=== PATIENT | male | born 1990 | race Two or more races ===

== ENCOUNTER 2024-08-19 07:44 | Emergency (ER) | payer MEDICAID, SELFPAY ==
[2024-08-19 08:31] VITALS: BP 130/80; PULSE 70; RESP 18; TEMP 37; O2SAT 97; BMI 44.7
--- NOTE | 2024-08-19 09:44 | EDNOTE_ITS ---
<Statement entered by Reshma Hampton MD - 08/20/24 06:47> As co-signing physician, I was present and available for consult prn. I concur with the plan and care as documented by the midlevel provider. ED Back Injury Pain RME/HPI General Chief Complaint: Back Pain/Injury Stated Complaint: MUSCLE SPASM IN BACK SINCE YESTERDAY Time Seen by Provider: 08/19/24 08:41 Arrival date/time: 08/19/24 07:44 RME / HPI RME / HPI Narrative: 34-year-old patient presents to the emergency department with complaint of upper back pain. Patient states that while at home sitting he explained that he is having back orthopedic of something and noticed immediate sharp pain. He denies numbness and tingling to distal right extremity. He denies bowel or bladder dysfunction. He denies fever. Pain is worse with palpation of back with flexion and extension of his back. He endorses a history of degenerative joint disease Related Data Previous Rx's ?Medication ?Instructions ?Recorded mupirocin 2 % topical ointment 1 applic topical BID #22 grams 03/12/24 cyclobenzaprine 10 mg tablet 10 mg PO HS 10 days #10 tabs 08/19/24 ibuprofen 800 mg tablet 800 mg PO Q8H #30 tabs 08/19/24 Allergies Allergy/AdvReac Type Severity Reaction Status Date / Time No Known Allergies Allergy Verified 08/19/24 07:46 Review of Systems Review of Systems Systems Reviewed: All systems reviewed, normal except as documented Constitutional Constitutional: Reports system reviewed and no additional complaints, except as documented ENT Ears, Nose, Mouth, and Throat: Reports system reviewed and no additional complaints, except as documented Cardiovascular Cardiovascular: Reports system reviewed and no additional complaints, except as documented Respiratory Respiratory: Reports system reviewed and no additional complaints, except as documented Gastrointestinal Gastrointestinal: Reports system reviewed and no additional complaints, except as documented Musculoskeletal Musculoskeletal: Reports system reviewed and no additional complaints, except as documented, Reports back pain, Denies numbness, Denies radiating pain into limb and Reports stiffness Neurologic Neurologic: Denies numbness Psychiatric Psychiatric: Reports system reviewed and no additional complaints, except as documented ED Exam General General appearance: Present alert and in no apparent distress Head Head exam: Present atraumatic and normocephalic ENT ENT exam: Present normal exam and normal oropharynx Neck Neck exam: Present normal inspection and full ROM Chest Chest inspection: Present normal inspection and symmetric chest wall rise Respiratory Respiratory exam: Present normal lung sounds bilaterally Cardiovascular Cardiovascular exam: Present regular rate and normal rhythm Extremities Exam Extremities exam: Present normal inspection and full ROM Back Exam Back exam: Present normal inspection, tenderness, paraspinal tenderness and vertebral tenderness; Absent sciatic notch tenderness (R), straight leg raise (R) or straight leg raise (L) Psychiatric Psychiatric exam: Present normal affect and normal mood Course Quality Measures none Orders Category Date Time Status HYDROcodone*/APAP 5/325 [[place] 5/325] Med 08/19/24 09:44 Once 1 tab PO X1 ONE Ketorolac Inj [Toradol Inj] Med 08/19/24 09:44 Once 60 mg IM X1 ONE Vital Signs Vital signs: Vital Signs Temperature 98.6 F 08/19/24 08:31 Pulse Rate 70 08/19/24 08:31 Respiratory Rate 18 08/19/24 08:31 Blood Pressure 130/80 08/19/24 08:31 Pulse Oximetry (%) 97 08/19/24 08:31 Oxygen Delivery Method Room Air 08/19/24 08:31 Back Pain / Injury MDM Narrative MDM Narrative:: 34-year-old patient presents emergency department with complaint of back pain signs and symptoms appears consistent with lumbar spine patient is stable to be DC'd home with NSAIDs for pain control and a muscle relaxant. Patient data External records reviewed:: None Clinical information provided by:: patient Social determinants that could affect healthcare access:: none Patient has the following chronic illnesses:: DJD How is presenting disease/condition affected by chronic disease/condition?: no chronic disease Evaluation data The following diagnostics were reviewed and interpreted by me:: other (specify) (na) Lab and/or radiology exams considered but not ordered:: na Interpretation Summary: na Medications / Prescriptions Medications or Prescriptions considered but not ordered:: Medications or prescriptions considered and ordered Medication administrations:: per above Consultations Consultation(s) initiated? (list below): No Diagnosis Differential diagnosis back pain/injury: lumbar radiculopathy, sciatica, strain of lumbar region and thoracic back pain Most likely diagnosis given after review of the tests above:: thoraco-lumbar strain Admission Indicated Admission indicated?: not indicated Admission Request Was there a request for admission?: No Disposition Plan Disposition Plan: Discharge Discharge Attestation Discharge Attestation: The patient and all family members were given an opportunity to ask questions and understood the discharge instructions. Discharge instructions specifically effects, indications for sooner follow up or return to the emergency department, and the expected course of current diagnosis. Patient condition: Stable Discharge Plan Plan Patient Disposition: HOME (Self Care) Patient condition on transfer: Stable Prescriptions/Referrals Prescriptions/Med Rec: New ibuprofen 800 mg tablet 800 mg PO Q8H Qty: 30 0RF cyclobenzaprine 10 mg tablet 10 mg PO HS 10 Days Qty: 10 0RF No Action mupirocin 2 % ointment 1 applic topical BID Qty: 22 0RF Problem List Clinical Impression: Acute thoracic myofascial strain, Thoracic back pain Patient/Caregiver Discharge Instructions Education Materials: Treating?Strains and Sprains, Self-Care for Strains and Sprains Print Language: Urdu Stand Alone Forms: [facility] Award Info., Patient Portal Info Letter
[2024-08-19] MEDS: HYDROcodone/APAP 5/325 TABLET 1 TAB PO (10:38)
[2024-08-19] MEDS: KETOROLAC INJ 60 MG/2 ML VIAL IM (10:40)
== END 2024-08-19 11:22 | disposition home or self-care (01) ==
LOC: SERX 10:30
PROVIDERS: Emergency Provider Emergency Medicine
DX: S29.012A Strain of muscle and tendon of back wall of thorax, initial encounter (principal); X58.XXXA Exposure to other specified factors, initial encounter
CPT/HCPCS: 96372; 99283; J1885; A9270

== ENCOUNTER → 2024-10-13 | Outpatient (BNVA) | payer MEDICAID, SELFPAY | END | disposition home or self-care (01) | PROVIDERS: PCP Nurse Practitioner Primary Care; Referring Provider Nurse Practitioner Primary Care; Visit Provider Nurse Practitioner Primary Care | DX: Z71.2 Person consulting for explanation of examination or test findings (principal); E55.9 Vitamin D deficiency, unspecified | CPT/HCPCS: 99212; G0463 ==

== ENCOUNTER → 2024-11-29 | Outpatient (BNVA) | payer MEDICAID, SELFPAY | END | disposition home or self-care (01) | PROVIDERS: PCP Nurse Practitioner Family; Referring Provider Nurse Practitioner Family; Visit Provider Nurse Practitioner Family | DX: Z71.2 Person consulting for explanation of examination or test findings (principal); G47.30 Sleep apnea, unspecified; Z71.3 Dietary counseling and surveillance | CPT/HCPCS: 90471; 90715; 96372; 99214 ==

== ENCOUNTER → 2025-01-19 | Outpatient (BNVA) | payer MEDICAID, SELFPAY | END | disposition home or self-care (01) | PROVIDERS: PCP Nurse Practitioner Primary Care; Referring Provider Nurse Practitioner Primary Care; Visit Provider Nurse Practitioner Primary Care | DX: E55.9 Vitamin D deficiency, unspecified (principal) ==

== ENCOUNTER → 2025-01-27 | Outpatient (BNVA) | payer MEDICAID, SELFPAY | END | disposition home or self-care (01) | PROVIDERS: PCP Nurse Practitioner Family; Referring Provider Nurse Practitioner Family; Visit Provider Nurse Practitioner Family | DX: Z00.01 Encounter for general adult medical examination with abnormal findings (principal); S60.552A Superficial foreign body of left hand, initial encounter; Z71.3 Dietary counseling and surveillance; E55.9 Vitamin D deficiency, unspecified; L73.9 Follicular disorder, unspecified; E66.01 Morbid (severe) obesity due to excess calories; Z68.42 Body mass index [BMI] 45.0-49.9, adult; Z13.220 Encounter for screening for lipoid disorders; Z13.1 Encounter for screening for diabetes mellitus; Z11.3 Encounter for screening for infections with a predominantly sexual mode of transmission; Z71.85 Encounter for immunization safety counseling | CPT/HCPCS: 96372; 99173; 99215; A4216; J0696; J3490 ==

== ENCOUNTER → 2025-01-27 | Outpatient (CLI) | payer MEDICAID, SELFPAY ==
--- NOTE | 2025-01-27 15:59 | XR_ITS ---
Examination: Hand, left 3 views Technique: Hand AP, oblique, lateral 3 views Date and time of exam: January 27, 2025 1612 hours INDICATIONS: Foreign body injury to the second digit with redness swelling and pain involving the second digit beginning several days ago. FINDINGS: No cortical bone destruction No opaque foreign body No fracture No dislocation IMPRESSION: No cortical bone destruction or foreign body
== END | disposition home or self-care (01) ==
PROVIDERS: PCP Nurse Practitioner Family; Referring Provider Nurse Practitioner Family; Visit Provider Nurse Practitioner Family
DX: L08.9 Local infection of the skin and subcutaneous tissue, unspecified (principal); S60.559A Superficial foreign body of unspecified hand, initial encounter
CPT/HCPCS: 73120

== ENCOUNTER → 2025-01-28 | Outpatient (BNVA) | payer MEDICAID, SELFPAY | END | disposition home or self-care (01) | PROVIDERS: PCP Nurse Practitioner Family; Referring Provider Nurse Practitioner Family; Visit Provider Nurse Practitioner Family | DX: S60.552A Superficial foreign body of left hand, initial encounter (principal); Z71.2 Person consulting for explanation of examination or test findings | CPT/HCPCS: 99215 ==

== ENCOUNTER → 2025-02-04 | Outpatient (BNVA) | payer MEDICAID, SELFPAY | END | disposition home or self-care (01) | PROVIDERS: PCP Hospitalist; Referring Provider Hospitalist; Visit Provider Hospitalist | DX: S60.459A Superficial foreign body of unspecified finger, initial encounter (principal); G47.33 Obstructive sleep apnea (adult) (pediatric) ==

== ENCOUNTER 2025-02-09 08:36 | Emergency (ER) | payer MEDICAID, SELFPAY ==
[2025-02-09 09:04] VITALS: BP 122/82; PULSE 73; RESP 18; TEMP 37.3; O2SAT 96; BMI 45.0
[2025-02-09] MEDS: cefTRIAXone SOD INJ 1,000 MG VIAL 1000 MG IM (09:27)
[2025-02-09] MEDS: LIDOCAINE HCL 1% 20 ML VIAL 2.1 ML INFL (09:27)
--- NOTE | 2025-02-09 15:18 | EDNOTE_ITS ---
ED Skin Abcess FB-RME/HPI General Chief complaint: Skin/Abscess/Foreign Body Stated complaint: Left hand abscess X 1 week Time Seen by Provider: 02/09/25 08:38 Arrival date/time: 02/09/25 08:36 34-year-old male presents department today for complaints of infection of the left hand ongoing x 1 week patient reports he accidentally poked himself approxi-1 week ago and since then has been having some swelling patient reports drainage couple days ago which has resolved Limitations: no limitations Related Data Previous Rx's ?Medication ?Instructions ?Recorded ibuprofen 800 mg tablet 800 mg PO Q8H PRN pain #30 t abs 01/27/25 mupirocin 2 % topical ointment 1 applic topical BID #1 5 grams 01/27/25 tirzepatide (weight loss) 2.5 2.5 mg (0.5 mL) subcut Q WEEK 4 01/27/25 mg/0.5 mL subcutaneous pen weeks #2 mL injector ([facility]) clindamycin HCl 300 mg capsule 300 mg PO TID 7 days #2 1 caps 02/09/25 Allergies Allergy/AdvReac Type Severity Reaction Status Date / Time No Known Allergies Allergy Verified 02/09/25 08:39 Review of Systems Review of Systems Systems Reviewed: All systems reviewed, normal except as documented Constitutional Constitutional: Reports system reviewed and no additional complaints, except as documented, Denies fever(s) and Denies headache(s) Eyes Eyes: Reports system reviewed and no additional complaints, except as documented and Denies blurry vision ENT Ears, Nose, Mouth, and Throat: Reports system reviewed and no additional complaints, except as documented, Denies headache(s), Denies nasal congestion and Denies nasal discharge Cardiovascular Cardiovascular: Reports system reviewed and no additional complaints, except as documented, Denies chest pain and Denies dyspnea Respiratory Respiratory: Reports system reviewed and no additional complaints, except as documented, Denies chest congestion, Denies cough and Denies dyspnea Gastrointestinal Gastrointestinal: Reports system reviewed and no additional complaints, except as documented and Denies abdominal pain Integumentary/Breasts Skin/Breast: Reports system reviewed and no additional complaints, except as documented, Denies rash and Reports other (Mild swelling possible superficial abscess left hand) Neurologic Neurologic: Reports system reviewed and no additional complaints, except as documented, Reports as per HPI and Denies headache(s) Past Medical History Past Medical History CARDIAC: Negative Cardiac Disorders or Congestive Heart Failure RESPIRATORY: Negative Chronic Obstructive Pulmonary Disease (COPD) or Asthma GENITOURINARY: Negative Renal Disease ENDOCRINE: Negative Diabetes Mellitus Type 1 or Diabetes Mellitus Type 2 HEMATOLOGIC: Negative Sickle Cell Disease Social History SMOKING STATUS: Current every day smoker SECOND HAND EXPOSURE: No ED Exam General Limitations: Present no limitations General appearance: Present alert and in no apparent distress Head Head exam: Present atraumatic Eye Eye exam: Present normal appearance, PERRL and EOMI ENT ENT exam: Present normal exam, normal oropharynx and mucous membranes moist Neck Neck exam: Present normal inspection, full ROM and trachea midline Chest Chest inspection: Present normal inspection and symmetric chest wall rise Respiratory Respiratory exam: Present normal lung sounds bilaterally Cardiovascular Cardiovascular exam: Present regular rate, normal rhythm and normal heart sounds Abdominal Exam Abdominal exam: Present soft and normal bowel sounds Extremities Exam Extremities exam: Present normal inspection and full ROM Back Exam Back exam: Present normal inspection and full ROM Neurological Exam Neurological exam: Present alert, oriented X3 and CN II-XII intact Psychiatric Psychiatric exam: Present normal affect and normal mood Skin Skin exam: Present warm, dry and other (Mild swelling and redness palmar aspect left hand no evidence of tenosynovitis) Course Quality Measures none Orders Category Date Time Status Lidocaine 1% 20 ml [Xylocaine 1% 20 ML] Med 02/09/25 09:17 Discontinued 2.1 ml INFL X1 ONE cefTRIAXone [Rocephin] Med 02/09/25 09:17 Discontinued 1,000 mg IM X1 ONE Vital Signs Vital signs: Vital Signs Temperature 99.1 F 02/09/25 09:04 Pulse Rate 73 02/09/25 09:04 Respiratory Rate 18 02/09/25 09:04 Blood Pressure 122/82 02/09/25 09:04 Pulse Oximetry (%) 96 02/09/25 09:04 Oxygen Delivery Method Room Air 02/09/25 09:04 O2 saturation 96% room air with normal limits Skin / Abscess / Foreign Body MDM Narrative MDM Narrative:: 34-year-old male presents department today for complaints of infection of the left hand ongoing x 1 week patient reports he accidentally poked himself approxi-1 week ago and since then has been having some swelling patient reports drainage couple days ago which has resolved On exam patient well-appearing patient is not appear toxic On exam there is no definite abscess noted Patient has mild swelling to the palmar aspect of the left hand at the base of the index finger Patient given injection of antibiotics discharged with antibiotics Explained to the patient if he develops any induration increased redness or swelling to return immediately for further evaluation Patient data External records reviewed:: [facility] previous records Clinical information provided by:: patient Social determinants that could affect healthcare access:: none Patient has the following chronic illnesses:: None How is presenting disease/condition affected by chronic disease/condition?: no chronic disease Evaluation data The following diagnostics were reviewed and interpreted by me:: other (specify) Lab and/or radiology exams considered but not ordered:: Consider not ordered Interpretation Summary: N/A Medications / Prescriptions Medications or Prescriptions considered but not ordered:: N/A Medication administrations:: Medication Administration History Discontinued Medications Ceftriaxone Sodium (Ceftriaxone Sod Inj 1,000 Mg Vial) 1,000 mg IM X1 ONE Stop: 02/09/25 09:18 Last Admin: 02/09/25 09:27 Dose: 1,000 mg Documented By: URIEL Lidocaine HCl (Lidocaine Hcl 1% 20 Ml Vial) 2.1 ml INFL X1 ONE Stop: 02/09/25 09:18 Last Admin: 02/09/25 09:27 Dose: 2.1 ml Documented By: URIEL Given Consultations Consultation(s) initiated? (list below): No Diagnosis Skin/Abscess Differential Diagnosis: abscess of skin or subcutaneous tissue and cellulitis Most likely diagnosis given after review of the tests above:: Cellulitis Admission Indicated Admission indicated?: not indicated Admission Request Was there a request for admission?: No Disposition Plan Disposition Plan: Discharge Discharge Attestation Discharge Attestation: The patient and all family members were given an opportunity to ask questions and understood the discharge instructions. Discharge instructions specifically effects, indications for sooner follow up or return to the emergency department, and the expected course of current diagnosis. Patient condition: Stable Discharge Plan Plan Patient Disposition: HOME (Self Care) Discharge Disposition comment: Able Prescriptions/Referrals Prescriptions/Med Rec: New clindamycin HCl 300 mg capsule 300 mg PO TID 7 Days Qty: 21 0RF No Action ibuprofen 800 mg tablet 800 mg PO Q8H PRN (Reason: pain) Qty: 30 0RF Zepbound 2.5 mg/0.5 mL pen injector 2.5 mg subcut QWEEK 28 Days Qty: 2 0RF Rx Instructions: for 4 weeks mupirocin 2 % ointment 1 applic topical BID Qty: 15 0RF Problem List Clinical Impression: Bacterial skin infection Patient/Caregiver Discharge Instructions Education Materials: ED Wound Check (Infection) Additional Instructions: Please follow up with your primary care doctor in the next 24-48hrs for any worsening symptoms return here immediately Print Language: Slovak Stand Alone Forms: [employer] Award Info., Patient Portal Info Letter PA/RESOURCE PROTECTION SPECIALIST Supervising Physician PA/RESOURCE PROTECTION SPECIALIST Supervising Physician: Dr. johnson
== END 2025-02-09 09:32 | disposition home or self-care (01) ==
LOC: SERX 09:31
PROVIDERS: Emergency Provider Emergency Medicine
DX: L02.512 Cutaneous abscess of left hand (principal)
CPT/HCPCS: 96372; 99283; J0696; J3490

== ENCOUNTER 2025-02-17 07:05 | Emergency (ER) | payer MEDICAID, SELFPAY ==
[2025-02-17 07:06] VITALS: BMI 45.6
[2025-02-17 07:13] VITALS: BP 137/84; PULSE 74; RESP 19; TEMP 36.7; O2SAT 95
[2025-02-17] MEDS: DIPHTH,PERTUSS(ACELL),TET VAC 0.5 ML SYR- ADULT IMi (07:38)
--- NOTE | 2025-02-17 07:40 | EDNOTE_ITS ---
ED Skin Abcess FB-RME/HPI General Chief complaint: Skin/Abscess/Foreign Body Stated complaint: RECHECK ABSCESS TO FINGER ON LEFT HAND Time Seen by Provider: 02/17/25 07:08 Source: patient Arrival date/time: 02/17/25 07:05 34-year-old male with no known medical history presents to the emergency room with a chief complaint of an abscess to his left hand index finger. Patient states has been dealing with this for a month was seen here last week and given antibiotics that have not helped. Mode of arrival: ambulatory Limitations: no limitations Related Data Previous Rx's ?Medication ?Instructions ?Recorded ibuprofen 800 mg tablet 800 mg PO Q8H PRN pain #30 t abs 01/27/25 mupirocin 2 % topical ointment 1 applic topical BID #1 5 grams 01/27/25 tirzepatide (weight loss) 2.5 2.5 mg (0.5 mL) subcut Q WEEK 4 01/27/25 mg/0.5 mL subcutaneous pen weeks #2 mL injector (Zepbound) sulfamethoxazole 800 1 tab PO BID #14 tabs mg-trimethoprim 160 mg tablet (Bactrim DS) Allergies Allergy/AdvReac Type Severity Reaction Status Date / Time No Known Allergies Allergy Verified 02/17/25 07:08 Review of Systems Review of Systems Systems Reviewed: All systems reviewed, normal except as documented Constitutional Constitutional: Reports system reviewed and no additional complaints, except as documented, Denies fatigue, Denies fever(s), Denies headache(s) and Denies weakness Eyes Eyes: Reports system reviewed and no additional complaints, except as documented, Denies blurry vision and Denies change in vision ENT Ears, Nose, Mouth, and Throat: Reports system reviewed and no additional complaints, except as documented, Denies otalgia, Denies headache(s), Denies nasal congestion, Denies throat swelling and Denies vertigo Cardiovascular Cardiovascular: Reports system reviewed and no additional complaints, except as documented, Denies chest pain, Denies dyspnea and Denies dyspnea on exertion Respiratory Respiratory: Reports system reviewed and no additional complaints, except as documented, Denies chest congestion, Denies cough, Denies dyspnea, Denies dyspnea on exertion and Denies wheezing Gastrointestinal Gastrointestinal: Reports system reviewed and no additional complaints, except as documented, Denies abdominal pain, Denies cramping, Denies nausea and Denies vomiting Genitourinary Genitourinary: Reports system reviewed and no additional complaints, except as documented, Denies dysuria and Denies hematuria Musculoskeletal Musculoskeletal: Reports system reviewed and no additional complaints, except as documented and Denies back pain Integumentary/Breasts Skin/Breast: Reports system reviewed and no additional complaints, except as documented and Reports wounds Neurologic Neurologic: Reports system reviewed and no additional complaints, except as documented, Denies confusion, Denies headache(s), Denies lack of coordination, Denies vertigo and Denies weakness Psychiatric Psychiatric: Reports system reviewed and no additional complaints, except as documented, Denies anxiety, Denies confusion, Denies depression, Denies paranoia, Denies suicidal ideation and Denies tactile hallucinations Endocrine Endocrine: Reports system reviewed and no additional complaints, except as documented and Denies fatigue Hematologic/Lymphatic Hematologic/Lymphatic: Reports system reviewed and no additional complaints, except as documented and Denies lymphadenopathy Allergic/Immunologic Allergic/Immunologic: Reports system reviewed and no additional complaints, except as documented, Denies throat swelling, Denies urticaria and Denies wheezing Past Medical History Past Medical History CARDIAC: Negative Cardiac Disorders or Congestive Heart Failure RESPIRATORY: Negative Chronic Obstructive Pulmonary Disease (COPD) or Asthma GENITOURINARY: Negative Renal Disease ENDOCRINE: Negative Diabetes Mellitus Type 1 or Diabetes Mellitus Type 2 HEMATOLOGIC: Negative Sickle Cell Disease Social History SMOKING STATUS: Current every day smoker SECOND HAND EXPOSURE: No ED Exam General Limitations: Present no limitations General appearance: Present alert and in no apparent distress Head Head exam: Present atraumatic Eye Eye exam: Present normal appearance, PERRL and EOMI ENT ENT exam: Present normal exam, normal oropharynx and mucous membranes moist Neck Neck exam: Present normal inspection, full ROM and trachea midline Chest Chest inspection: Present normal inspection and symmetric chest wall rise Respiratory Respiratory exam: Present normal lung sounds bilaterally Cardiovascular Cardiovascular exam: Present regular rate, normal rhythm and normal heart sounds Abdominal Exam Abdominal exam: Present soft and normal bowel sounds Extremities Exam Extremities exam: Present normal inspection and full ROM Expanded Upper Extremity Exam Shoulder exam: Present normal inspection Arm exam: Present normal inspection Elbow exam: Present normal inspection Forearm/Wrist exam: Present normal inspection Hand exam: Present tenderness, swelling and erythema Hand L/R back image: 2 1. 1 cm abscess to the left index finger near the MCP joint Back Exam Back exam: Present normal inspection and full ROM Neurological Exam Neurological exam: Present alert, oriented X3 and CN II-XII intact Psychiatric Psychiatric exam: Present normal affect and normal mood Skin Skin exam: Present warm, dry, intact and normal color Course Quality Measures none Orders Category Date Time Status Incision and Drainage Set Up X1 Care 02/17/25 07:24 Active Set Up Suture Tray STAT Care 02/17/25 07:24 Active Wound Care NOW Care 02/17/25 07:24 Active Lidocaine 1% 20 ml [Xylocaine 1% 20 ML] Med 02/17/25 07:24 Discontinued 20 ml INFL X1 ONE TET,DIP/PERT AC (Adult)-Tdap [Boostrix Adult (Tdap) Med 02/17/25 07:24 Discontinued Vacc] 0.5 ml IMI .ONCE ONE cefTRIAXone [Rocephin] 1,000 mg Med 02/17/25 08:29 Discontinued Lidocaine 1% 20 ml [Xylocaine 1% 20 ML] 2.1 ml IM X1 Vital Signs Vital signs: Vital Signs Temperature 98.1 F 02/17/25 07:13 Pulse Rate 74 02/17/25 07:13 Respiratory Rate 19 02/17/25 07:13 Blood Pressure 137/84 H 02/17/25 07:13 Pulse Oximetry (%) 95 02/17/25 07:13 Oxygen Delivery Method Room Air 02/17/25 07:13 Skin / Abscess / Foreign Body MDM Narrative MDM Narrative:: 34-year-old male with no known medical history presents to the emergency room with a chief complaint of an abscess to his left hand index finger. Patient states has been dealing with this for a month was seen here last week and given antibiotics that have not helped. Physical examination shows a 1 cm abscess to the left index finger near the MCP joint. The site is erythemic and there is a pustule. Patient states he was seen here last week given antibiotics and they have not helped. Patient states this is progressively gotten worse in the last month. PROCEDURE: incision and drainage of abscess PROCEDURE: A timeout protocol was performed prior to initiating the procedure. The area was prepared with Betadine and draped in the usual, sterile manner. The site was anesthetized with 1% lidocaine. A linear incision along the local skin lines was made and the purulent material expressed. The abscess was explored thoroughly and sequestered pockets were opened. Bleeding was minimal. Packing: none Followup: The patient tolerated the procedure well without complications. Standard post-procedure care is explained and patient was educated to follow-up with his primary care provider in the next 24 to 48 hours or return to the emergency room for any evidence of worsening signs or symptoms. Patient data External records reviewed:: [facility] previous records Clinical information provided by:: patient Social determinants that could affect healthcare access:: none Patient has the following chronic illnesses:: No chronic illness How is presenting disease/condition affected by chronic disease/condition?: no chronic disease Evaluation data The following diagnostics were reviewed and interpreted by me:: lab results and radiology exam(s) Lab and/or radiology exams considered but not ordered:: Labs and radiology exams considered in order Interpretation Summary: N/A Medications / Prescriptions Medications or Prescriptions considered but not ordered:: Medication given Medication administrations:: Medication Administration History Discontinued Medications Ceftriaxone Sodium 1,000 mg/ (Lidocaine HCl 2.1 ml) 0 mg IM X1 ONE Stop: 02/17/25 08:30 Diphtheria/Tetanus/Acell Pertussis (Diphth,Pertuss(Acell),Tet Vac 0.5 Ml Syr- Adult) 0.5 ml IMi .ONCE ONE Stop: 02/17/25 07:25 Last Admin: 02/17/25 07:38 Dose: 0.5 ml Documented By: SM Lidocaine HCl (Lidocaine Hcl 1% 20 Ml Vial) 20 ml INFL X1 ONE Stop: 02/17/25 07:25 Medication given Consultations Consultation(s) initiated? (list below): No Diagnosis Skin/Abscess Differential Diagnosis: abscess of skin or subcutaneous tissue, cellulitis and contact dermatitis Most likely diagnosis given after review of the tests above:: Abscess of skin or subcutaneous tissue Admission Indicated Admission indicated?: not indicated Admission Request Was there a request for admission?: No Disposition Plan Disposition Plan: Discharge Discharge Attestation Discharge Attestation: The patient and all family members were given an opportunity to ask questions and understood the discharge instructions. Discharge instructions specifically effects, indications for sooner follow up or return to the emergency department, and the expected course of current diagnosis. Patient condition: Stable Discharge Plan Plan Patient Disposition: HOME (Self Care) Discharge Disposition comment: Stable Prescriptions/Referrals Prescriptions/Med Rec: New sulfamethoxazole-trimethoprim [Bactrim DS] 800-160 mg tablet 1 tab PO BID Qty: 14 0RF No Action ibuprofen 800 mg tablet 800 mg PO Q8H PRN (Reason: pain) Qty: 30 0RF Zepbound 2.5 mg/0.5 mL pen injector 2.5 mg subcut QWEEK 28 Days Qty: 2 0RF Rx Instructions: for 4 weeks mupirocin 2 % ointment 1 applic topical BID Qty: 15 0RF Problem List Clinical Impression: Encounter for incision and drainage procedure, Abscess of skin or subcutaneous tissue Patient/Caregiver Discharge Instructions Education Materials: ED Abscess, Incision And Drainage Additional Instructions: Please follow-up with your primary care provider in the next 24 to 48 hours Your abscess was drained. Please take your antibiotics as prescribed For any evidence of worsening signs or symptoms return to the emergency room immediately Print Language: Slovenian Stand Alone Forms: Awilda Award Info., Patient Portal Info Letter PA/CALCULATING MACHINE MECHANIC Supervising Physician PA/CALCULATING MACHINE MECHANIC Supervising Physician: Dr. Rivera
[2025-02-17] MEDS: cefTRIAXone 1,000 MG, LIDOCAINE 1% 20 ML 2.1 ML IM (08:51)
[2025-02-17] MEDS: LIDOCAINE HCL 1% 20 ML VIAL INFL (08:51)
== END 2025-02-17 09:10 | disposition home or self-care (01) ==
LOC: SERX 09:15
PROVIDERS: Emergency Provider Nurse Practitioner Family; PCP Nurse Practitioner Family
DX: L02.512 Cutaneous abscess of left hand (principal); Z23 Encounter for immunization
CPT/HCPCS: 10060; 90471; 90715; 99283; J0696; J3490

== ENCOUNTER → 2025-02-28 | Outpatient (BNVA) | payer MEDICAID, SELFPAY | END | disposition home or self-care (01) | PROVIDERS: PCP Nurse Practitioner Family; Referring Provider Nurse Practitioner Family; Visit Provider Nurse Practitioner Family | DX: Z71.3 Dietary counseling and surveillance (principal); E66.01 Morbid (severe) obesity due to excess calories; Z68.41 Body mass index [BMI] 40.0-44.9, adult | CPT/HCPCS: 99213 ==

== ENCOUNTER → 2025-03-28 | Outpatient (BNVA) | payer MEDICAID, SELFPAY | END | disposition home or self-care (01) | PROVIDERS: PCP Nurse Practitioner Family; Referring Provider Nurse Practitioner Family; Visit Provider Nurse Practitioner Family | DX: M25.561 Pain in right knee (principal); E66.813 Obesity, class 3; Z71.3 Dietary counseling and surveillance; Z68.41 Body mass index [BMI] 40.0-44.9, adult | CPT/HCPCS: 99214 ==

== ENCOUNTER → 2025-04-25 | Outpatient (BNVA) | payer MEDICAID, SELFPAY | END | disposition home or self-care (01) | PROVIDERS: PCP Nurse Practitioner Primary Care; Referring Provider Nurse Practitioner Primary Care; Visit Provider Nurse Practitioner Primary Care | DX: Z71.3 Dietary counseling and surveillance (principal); E66.01 Morbid (severe) obesity due to excess calories; Z68.42 Body mass index [BMI] 45.0-49.9, adult | CPT/HCPCS: 99213 ==

== ENCOUNTER 2025-05-02 07:15 | Emergency (ER) | payer MEDICAID, SELFPAY ==
[2025-05-02 07:16] VITALS: BMI 39.5
[2025-05-02 07:22] VITALS: BP 142/94; PULSE 79; RESP 18; TEMP 36.8; O2SAT 97
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
== END 2025-05-02 09:34 | disposition home or self-care (01) ==
PROVIDERS: Emergency Provider Emergency Medicine; PCP Nurse Practitioner Family
DX: S22.32XA Fracture of one rib, left side, initial encounter for closed fracture (principal); V00.848A Other accident with standing micro-mobility pedestrian conveyance, initial encounter
CPT/HCPCS: 71101; 99283

== ENCOUNTER → 2025-05-04 | Outpatient (BNVA) | payer MEDICAID, SELFPAY | END | disposition home or self-care (01) | PROVIDERS: PCP Nurse Practitioner Family; Referring Provider Nurse Practitioner Family; Visit Provider Nurse Practitioner Family | DX: S22.32XS Fracture of one rib, left side, sequela (principal); X58.XXXS Exposure to other specified factors, sequela; Z71.2 Person consulting for explanation of examination or test findings | CPT/HCPCS: 96372; 99213; J1885 ==

== ENCOUNTER → 2025-05-13 | Outpatient (BNVA) | payer MEDICAID, SELFPAY | END | disposition home or self-care (01) | PROVIDERS: PCP Nurse Practitioner Family; Referring Provider Nurse Practitioner Family; Visit Provider Nurse Practitioner Family | DX: Z71.3 Dietary counseling and surveillance (principal); E66.01 Morbid (severe) obesity due to excess calories; Z68.41 Body mass index [BMI] 40.0-44.9, adult | CPT/HCPCS: 99213 ==

== ENCOUNTER → 2025-06-01 | Outpatient (BNVA) | payer MEDICAID, SELFPAY | END | disposition home or self-care (01) | PROVIDERS: PCP Nurse Practitioner Family; Referring Provider Nurse Practitioner Family; Visit Provider Nurse Practitioner Family | DX: Z71.3 Dietary counseling and surveillance (principal); E66.813 Obesity, class 3; Z68.42 Body mass index [BMI] 45.0-49.9, adult | CPT/HCPCS: 99213 ==

== ENCOUNTER → 2025-06-10 | Outpatient (BNVA) | payer MEDICAID, SELFPAY | END | disposition home or self-care (01) | PROVIDERS: PCP Nurse Practitioner Family; Referring Provider Nurse Practitioner Family; Visit Provider Nurse Practitioner Family | DX: Z71.2 Person consulting for explanation of examination or test findings (principal); Z71.3 Dietary counseling and surveillance; E66.01 Morbid (severe) obesity due to excess calories; Z68.42 Body mass index [BMI] 45.0-49.9, adult; R73.03 Prediabetes; Z23 Encounter for immunization; E55.9 Vitamin D deficiency, unspecified | CPT/HCPCS: 90471; 90686; 99213 ==

== ENCOUNTER 2025-06-20 07:13 | Emergency (ER) | payer MEDICAID, SELFPAY ==
[2025-06-20 07:33] VITALS: BP 120/75; PULSE 78; RESP 18; TEMP 36.8; O2SAT 98; BMI 36.9
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
== END 2025-06-20 09:12 | disposition home or self-care (01) ==
PROVIDERS: Emergency Provider Nurse Practitioner Family; PCP Nurse Practitioner Family
DX: S22.31XA Fracture of one rib, right side, initial encounter for closed fracture (principal); S27.2XXA Traumatic hemopneumothorax, initial encounter; Y93.55 Activity, bike riding; W19.XXXA Unspecified fall, initial encounter
CPT/HCPCS: 71101; 99282

== ENCOUNTER → 2025-07-11 | Outpatient (BNVA) | payer MEDICAID, SELFPAY | END | disposition home or self-care (01) | PROVIDERS: PCP Nurse Practitioner Family; Referring Provider Nurse Practitioner Family; Visit Provider Nurse Practitioner Family | DX: Z71.3 Dietary counseling and surveillance (principal); Z28.21 Immunization not carried out because of patient refusal | CPT/HCPCS: 99213 ==

== ENCOUNTER → 2025-08-08 | Outpatient (BNVA) | payer MEDICAID, SELFPAY | END | disposition home or self-care (01) | PROVIDERS: PCP Nurse Practitioner Family; Referring Provider Nurse Practitioner Family; Visit Provider Nurse Practitioner Family | DX: Z71.3 Dietary counseling and surveillance (principal); E66.01 Morbid (severe) obesity due to excess calories; Z68.42 Body mass index [BMI] 45.0-49.9, adult | CPT/HCPCS: 99213 ==